=== PATIENT | male | born 1970 | race Caucasian/White ===

== ENCOUNTER → 2016-03-04 08:42 | Outpatient (CLI) | payer MEDICAID ==
[2011-09-22 11:38] VITALS: BMI 26.6
[2016-03-04 10:19] LABS: BASOPHILS 1.2 % (0.0-2.0); HEMATOCRIT 46.3 % (42.0-54.0); HEMOGLOBIN 15.6 g/dL (13.5-17.5); IMMATURE GRANULOCYTES 0.4 % (0-5); LYMPHOCYTES 19.8 % (15-50); MCHC 33.7 g/dL (31.0-37.0); MEAN PLATELET VOLUME 8.6 fL (7.4-10.4); MONOCYTES 11.2 % (2-11); NEUTROPHILS 64.4 % (40-80); PLATELET COUNT 259 10x3/uL (130-400); RDW 12.3 % (11.5-14.5); WBC 9.4 10x3/uL (4.8-10.8)
[2016-03-05 08:18] LABS: IMMUNOGLOBULIN E 621 IU/mL (0-100)
[2016-03-05 10:17] LABS: IMMUNOGLOBULIN A 304 mg/dL (90-386); IMMUNOGLOBULIN G 1021 mg/dL (700-1600); IMMUNOGLOBULIN M 47 mg/dL (20-172)
== END | disposition home or self-care (01) ==
LOC: D.RT 02-25 08:00 → D.CT 02-25 09:00 → D.RT 08:42
PROVIDERS: Internal Medicine Pulmonary Disease
DX: J47.9 Bronchiectasis, uncomplicated (principal)